=== PATIENT | female | born 1975 | race Caucasian/White ===

== ENCOUNTER 2021-09-16 12:11 | Emergency (ER) | payer OTHER, SELFPAY ==
[2021-09-16 12:40] VITALS: BP 151/104; PULSE 90; RESP 16; TEMP 36.9; O2SAT 100
--- NOTE | 2021-09-16 12:58 | ED.EAR ---
HPI - Ear Problem General Chief complaint: Ear Stated complaint: Bilateral Ear Pain Time Seen by Provider: 09/16/21 12:50 Source: patient Mode of arrival: ambulatory Limitations: no limitations History of Present Illness HPI Narrative: Kimmie Ramey is a 46 yo female with a PMH of HTN, asthma, who also smokes cigarettes, who comes with 4 days of bilateral ear pain; no drainage but pain that runs down the side of the jaw. No fever no nausea vomiting diarrhea Patient has blood pressure medication-but has not gotten it refilled she gets her medication adjustment and is aware that she needs to be on her medication Related Data Allergies Allergy/AdvReac Type Severity Reaction Status Date / Time No Known Allergies Allergy Verified 09/16/21 12:47 Review of Systems Review of Systems: CONSTITUTIONAL: Denies fever, chills, sweats. EYES: Denies visual changes, redness, discharge. ENT: Denies rhinorrhea, congestion, sore throat, bilateral otalgia. CARDIOVASCULAR: Denies chest pain, palpitations, edema. RESPIRATORY: Denies dyspnea, wheezing, cough GASTROINTESTINAL: Denies abdominal pain, nausea, vomiting, diarrhea. GENITOURINARY: Denies dysuria, hematuria, abnormal discharge SKIN: Denies rash or itching. NEUROLOGIC: Denies numbness, or focal weakness. PSYCHIATRIC: Denies anxiety or depression. [facility] Past Medical History Medical History Asthma HTN (hypertension) Social History Social History (Updated 09/16/21 @ 13:01 by Iva Mesa CNP) Smoking status: Current every day smoker Tobacco type: cigarettes Alcohol intake: current Comments At time of signature, I agree with nursing past medical, surgical, social and family history. There is no relevant family history pertinent to the presenting complaint. Exam Narrative: GENERAL: This is a well-nourished, well-developed patient, in moderate distress. HEAD: normocephalic, atraumatic. EYES: Sclera clear/white. Vision is grossly intact. EARS: External ears normal, auditory canals erythema and without drainage, TMs appear to have fluid behind them. Hearing grossly intact. NOSE: External nose normal without nasal discharge, nares without redness, no rhinorrhea. THROAT: Mucous membranes moist, posterior pharynx erythema NECK: Neck supple mild-tender CARDIOVASCULAR: Regular rate and rhythm without murmurs, gallops, or rubs. RESPIRATORY: Clear to auscultation. Breath sounds equal bilaterally. No wheezes, rales, or rhonchi. GASTROINTESTINAL: Not performed SKIN: warm, intact with no suspicious lesions or rash, good texture and turgor. NEURO: awake, alert, and oriented to person, place and time. There were no obvious focal neurologic abnormalities. Steady gait EXTREMITIES: Normal range of motion. BACK: Nontender without deformity Course Course Emergency Course: Bilateral ear pain x4 days, has tried Tylenol naproxen Started on polymyxin, Zyrtec, Flonase Level of Care: Express Care Visit Vital Signs Vital signs: Vital Signs Temperature 98.5 F 09/16/21 12:40 Pulse Rate 90 09/16/21 12:40 Respiratory Rate 16 09/16/21 12:40 Blood Pressure 151/104 H 09/16/21 12:40 Pulse Oximetry 100 09/16/21 12:40 Temperature 98.5 F 09/16/21 12:40 Pulse Rate 90 09/16/21 12:40 Respiratory Rate 16 09/16/21 12:40 Blood Pressure 151/104 H 09/16/21 12:40 Pulse Oximetry 100 09/16/21 12:40 Medical Decision Making Differential Diagnosis Differential Diagnosis: Otitis media versus otitis externa versus eustachian tube dysfunction Vital Signs Vital Signs: Vital Signs Temperature 98.5 F 09/16/21 12:40 Pulse Rate 90 09/16/21 12:40 Respiratory Rate 16 09/16/21 12:40 Blood Pressure 151/104 H 09/16/21 12:40 Pulse Oximetry 100 09/16/21 12:40 Temperature 98.5 F 09/16/21 12:40 Pulse Rate 90 09/16/21 12:40 Respiratory Rate 16 09/16/21 12:40 Blood Pressure 151/104 H 09/16/21 12:40
== END 2021-09-16 13:10 | disposition home or self-care (01) ==
PROVIDERS: Emergency Provider Nurse Practitioner
DX: H66.003 Acute suppurative otitis media without spontaneous rupture of ear drum, bilateral (principal); F17.210 Nicotine dependence, cigarettes, uncomplicated; J45.909 Unspecified asthma, uncomplicated; I10 Essential (primary) hypertension
CPT/HCPCS: 99203; G0463

== ENCOUNTER 2022-01-05 19:18 | Emergency (ER) | payer MEDICAID, SELFPAY ==
[2022-01-05 19:20] VITALS: BP 186/109; PULSE 95; RESP 18; TEMP 36.4; O2SAT 98
--- NOTE | 2022-01-05 20:34 | ED.GENADULT ---
HPI - General Adult General Chief complaint: Ear <JESSY Luis Last Filed: 01/06/22 02:59> Stated complaint: ear infection <JESSY Luis Last Filed: 01/06/22 02:59> Time Seen by Provider: 01/05/22 19:44 <JESSY Luis Last Filed: 01/06/22 02:59> History of Present Illness HPI narrative: Patient is a 47-year-old female with a history of hypertension and diabetes who presents emergency department for bilateral ear pain for the past year. Patient states the pain began after she used Debrox earwax removal drops. The pain is mostly present on the outside of her ear. She has been evaluated multiple times in numerous different urgent cares and has been prescribed multiple rounds of antibiotics without improvement of her pain, but she has not seen an ENT specialist. States that her pain is now severe, unrelieved after Tylenol and ibuprofen. Additionally reports some decreased hearing in her both of her ears, dizziness, and intermittent frontal headaches and sinus drainage. Patient also states that earwax is coming out of my head . She did not elaborate on that complaint. Denies fevers, chills. <JESSY Luis Last Filed: 01/06/22 02:59> Related Data Allergies/adverse reactions: Allergies Allergy/AdvReac Type Severity Reaction Status Date / Time No Known Allergies Allergy Unverified 01/05/22 19:24 <JESSY Luis Last Filed: 01/06/22 02:59> Review of Systems Review of Systems: Gen: Denies fevers or chills Eyes: denies eye pain or visual change ENT: Reports ear pain. Denies congestion Respiratory: Denies shortness of breath or cough CV: Denies chest pain or palpitations GI: Denies abdominal pain nausea, emesis or diarrhea : denies burning, urgency, frequency or hematuria Musculoskeletal: Denies back pain or muscle pain Neuro: Denies numbness, tingling, weakness or focal weakness Skin: Denies rash Except as documented, all other systems reviewed and negative <JESSY Luis Last Filed: 01/06/22 02:59> All systems reviewed & are unremarkable except as noted in HPI and below <Ashley Maya PA-C - Last Filed: 01/06/22 02:59> Exam Narrative: APPEARANCE: Well appearing, no pain in distress, well-nourished. Head: normocephalic and atraumatic. No mastoid swelling, redness or tenderness. She does note some pain with palpation at the angle of her mandible bilaterally. EYES: PERRLA/EOMI, conjunctivae clear NOSE: No nasal drainage EARS: TMs clear bilaterally. Bilateral external ear normal in appearance. No swelling or erythema. No discharge noted to bilateral ears. No mastoid tenderness. THROAT: Oropharynx is clear. Mucous membranes are moist. NECK: Supple. No adenopathy, no masses. RESPIRATORY: Airway patent, respirations nonlabored. Clear to auscultation bilaterally, no rales, rhonchi, wheezing. CARDIOVASCULAR: Regular rate and rhythm without murmurs, rubs, or gallops. ABDOMINAL: Normoactive bowel sounds. Soft, nontender, nondistended. No rebound tenderness or guarding. MUSCULOSKELETAL: Extremities are warm and well-perfused. Moves all extremities well. No edema. NEURO: Normal speech. No focal neurologic deficits. No gross hearing deficit. SKIN: Skin is warm and dry. No rashes. PSYCHIATRIC: Anxious affect. <Ashley Maya PA-C - Last Filed: 01/06/22 02:59> Course C[employer]ACER/PA Physician Supervision I did not see this patient but the care plan was discussed with me. I agree with the documentation as above <John Lewis MD - Last Filed: 01/06/22 03:28> Vital Signs Vital signs: Vital Signs Temperature 36.4 C 01/05/22 19:20 Pulse Rate 95 01/05/22 19:20 Respiratory Rate 18 01/05/22 19:20 Blood Pressure 186/109 H 01/05/22 19:20 Pulse Oximetry 98 01/05/22 19:20 Temperature 36.4 C 01/05/22 19:20 Pulse Rate 95 01/05/22 19:20 Respiratory Rate 18 01/05/22 1
[2022-01-05] MEDS: KETOROLAC 30 MG/ML VIAL (*BKC) IM (20:54)
== END 2022-01-05 21:57 | disposition home or self-care (01) ==
PROVIDERS: Emergency Provider Emergency Medicine
DX: H92.03 Otalgia, bilateral (principal); G89.29 Other chronic pain; I10 Essential (primary) hypertension; E11.9 Type 2 diabetes mellitus without complications
CPT/HCPCS: 96372; 99283; J1885

== ENCOUNTER 2022-03-09 14:55 | Emergency (ER) | payer MEDICAID, SELFPAY ==
--- NOTE | ~2022-03-09 | XR_ITS ---
XR chest 2V DATE: 03/09/2022 16:01 INDICATION: Chest pain and pressure. Shortness of breath. Hypertension. TECHNIQUE: PA and lateral views COMPARISON: None FINDINGS: Normal heart size. No hilar or mediastinal enlargement. No pulmonary infiltrate or consolid ation, pleural effusion or pulmonary vascular congestion or pneumothorax. IMPRESSION: No active cardiopulmonary disease Reviewed, dictated and finalized at location A.
--- NOTE | 2022-03-09 15:52 | ECG_ITS ---
Measurements Intervals [place] Rate: 82 P: 60 GA: 130 QRS: 71 QRSD: 90 T: 50 QT: 382 QTc: 447 Interpretive Statements SINUS RHYTHM LOW QRS VOLTAGE IN PRECORDIAL LEADS BASELINE ARTIFACT- I, II, III, AVR, AVL, AVF BORDERLINE ECG Electronically Signed On 03-09-2022 16:04:59 CDT by Chadd Gibson D.O.
[2022-03-09 16:10] VITALS: BP 148/97; PULSE 79; RESP 17; TEMP 36.6; O2SAT 99
--- NOTE | 2022-03-09 16:24 | ED.GENADULT ---
HPI - General Adult General Chief complaint: Chest Pain Stated complaint: abnormal labs Time Seen by Provider: 03/09/22 15:32 History of Present Illness HPI narrative: Patient is a 47-year-old female who presents ER with reports of abnormal lab work. She reports she was referred here by her PCP. She was seen at [facility] yesterday and was told she had elevated cardiac enzymes but they did not have a bed so she decided to leave just call her doctor today. Her doctor reports that they cannot help her with elevated cardiac enzymes and she should return to the ER. Patient reports she has central exertional chest discomfort that is aching and nonradiating. None at rest. She has been having shortness of breath with this chest discomfort and its been worsening over the last couple weeks. She notes that her blood sugars have been running higher than typical though she has been compliant with her metformin. Of note patient also reports burning urination with dark urine that is typical of UTI for her. She is not currently on antibiotics. Related Data Home Medications Medication Instructions Recorded Confirmed lisinopril 10 mg tablet tablet 03/09/22 metformin 500 mg tablet tablet 03/09/22 Allergies Allergy/AdvReac Type Severity Reaction Status Date / Time No Known Allergies Allergy Verified 03/09/22 16:13 Review of Systems Review of Systems: All systems reviewed & are unremarkable except as noted in HPI and below Constitutional: Constitutional: Denies chills, Denies fever(s) and Reports weakness ENT: Denies nasal congestion and Denies sore throat Cardiovascular: Cardiovascular: Reports chest pain, Denies rapid heart rate and Denies radiating jaw, neck or arm pain Comments: Exertional dyspnea Respiratory: Respiratory: Denies chest congestion, Denies cough and Reports dyspnea Gastrointestinal: Gastrointestinal: Denies abdominal pain, Denies nausea and Denies vomiting Genitourinary: Genitourinary: Denies abnormal vaginal bleeding, Reports nocturia, Reports dysuria and Reports urinary incontinence PMFSH Past Medical History Medical History (Updated 03/09/22 @ 20:16 by Silvio Bergeron MD) Diabetes Surgical History Surgical History (Updated 03/09/22 @ 16:27 by Silvio Bergeron MD) No pertinent past surgical history Social History Social History (Updated 03/09/22 @ 16:27 by Silvio Bergeron MD) Smoking status: Current every day smoker Exam Narrative: GENERAL: Well-appearing, well-nourished, and in no acute distress. HEAD: Normocephalic, atraumatic. EYES: PERRLA and EOMI. ENT: Mucous membranes moist. TMs normal bilaterally. CHEST: Clear to auscultation. No respiratory distress. HEART: Regular rate and rhythm. Normal peripheral pulses. ABDOMEN: Soft, nontender, nondistended. EXTREMITIES: Normal range of motion. No edema. SKIN: Warm, dry, no rash. NEURO: Alert and oriented x3. PSYCH: Normal mood and affect. Course Course Emergency Course: Patient resting comfortably. No chest pain. Informed of results. Patient does not wish to stay in the hospital. We will perform a second troponin because if it is rising she may stay. Reevaluation(s) Reevaluation #1: Troponin negative x2. Discharge. Date: 03/09/22 Time: 20:13 Vital Signs Vital signs: Vital Signs Temperature 97.8 F 03/09/22 16:10 Pulse Rate 79 03/09/22 16:10 Respiratory Rate 17 03/09/22 16:10 Blood Pressure 148/97 H 03/09/22 16:10 Pulse Oximetry 99 03/09/22 16:10 Oxygen Delivery Room Air 03/09/22 16:10 Temperature 97.8 F 03/09/22 16:10 Pulse Rate 79 03/09/22 16:10 Respiratory Rate 17 03/09/22 16:10 Blood Pressure 148/97 H 03/09/22 16:10 Pulse Oximetry 99 03/09/22 16:10 Oxygen Delivery Room Air 03/09/22 16:10 Medical Decision Making Vital Signs Vital Signs: Vital Signs Temperature 97.8 F 03/09/22 16:10 Pulse Rate 79 03/09/22 16:10 Respiratory Rate 17 03/09/22
[2022-03-09 16:36] LABS: Basophils Absolute Auto 0.1 K/mm3 (0.0-0.1); Basophils Percent Auto 0.9 % (0.2-1.2); Eosinophils Absolute Auto 0.2 K/mm3 (0-0.3); Eosinophils Percent Auto 2.1 % (0-4.4); Hemoglobin 13.8 g/dL (12.0-15.0); Immature Granulocyte Absolute 0.03 K/mm3 (0.00-0.031); Immature Granulocyte Percent A 0.3 % (0-0.5); Lymphocytes Absolute Auto 2.97 K/mm3 (0.9-3.2); Lymphocytes Percent Auto 34.1 % (18.3-44.2); Mean Corpuscular HGB Conc 32.9 g/dl (32-36); Mean Corpuscular Hemoglobin 30.1 pg (26-34); Mean Corpuscular Volume 91.7 fl (80-100); Mean Platelet Volume 11.6 fl (7.4-10.4); Monocytes Absolute Auto 0.6 K/mm3 (0.1-0.6); Neutrophils Absolute Auto 4.9 K/mm3 (1.3-6.7); Neutrophils Percent Auto 55.6 % (45.5-73.1); Platelet Count Result 256 k/mm3 (150-375); Red Blood Count 4.58 M/mm3 (4.2-5.4); Red Cell Distribution Width 12.9 % (11.5-14.5); White Blood Count 8.7 K/mm3 (4.5-10.0)
[2022-03-09 16:42] LABS: INR 0.9; Prothrombin Time 12.2 Seconds (11.1-14.7)
[2022-03-09 16:43] LABS: Alanine Aminotransferase 84 U/L (6-35); Albumin Level 3.9 g/dL (3.5-5.1); Alkaline Phosphatase 92 U/L (38-126); Anion Gap 5 mmol/L (8-16); Aspartate Amino Transferase 50 U/L (14-36); Bilirubin,Total < 0.1 mg/dL (0.2-1.3); Blood Urea Nitrogen 25 mg/dL (7-17); Calcium 8.7 mg/dL (8.4-10.2); Carbon Dioxide 24 mmol/L (22-30); Chloride 109 mmol/L (98-107); Estimated CRCL calculation 78 ml/min; Estimated Glomerular Filt Rate > 60; Glucose 139 mg/dL (65-110); Potassium 3.9 mmol/L (3.4-5.0); Sodium 138 mmol/L (137-145)
[2022-03-09 16:44] LABS: Partial Thromboplastin Time 27.2 SECONDS (22.3-36.8)
[2022-03-09 16:55] LABS: Troponin I < 0.012 ng/mL (0.000-0.034)
[2022-03-09 17:43] LABS: Appearance Urine Cloudy (Clear); Bilirubin Urine Negative (Negative); Blood Urine Negative (Negative); Color Urine Yellow (Yellow); Glucose Urine UA Trace mg/dL (Negative); Ketones Urine Negative (Negative); Leukocyte Esterase Ur Negative LEU/UL (Negative); Nitrate Urine Negative (Negative); Protein Urine Negative (Negative); Specific Grav Ur >= 1.030 (1.001-1.035); Urobilinogen Urine 0.2 mg/dL (<2.0)
[2022-03-09 17:49] LABS: Bacteria Urine Trace /hpf; Mucus Urine Few /lpf; RBC Urine 21-50 /hpf (0-2); Squamous Epithelial Cell Urine Many /hpf (Few); WBC Urine 0-3 /hpf
[2022-03-09 17:50] LABS: Add Urine Microscopic? YES
--- NOTE | 2022-03-09 18:43 | PC.NURSE ---
POC test was noted to be negative
[2022-03-09 19:27] LABS: Troponin I < 0.012 ng/mL (0.000-0.034)
[2022-03-09 20:30] VITALS: BP 179/123
== END 2022-03-09 20:35 | disposition home or self-care (01) ==
PROVIDERS: Emergency Provider Emergency Medicine
DX: R07.89 Other chest pain (principal); E11.9 Type 2 diabetes mellitus without complications; F17.200 Nicotine dependence, unspecified, uncomplicated; R94.31 Abnormal electrocardiogram [ECG] [EKG]; Z79.84 Long term (current) use of oral hypoglycemic drugs
CPT/HCPCS: 36415; 71046; 80053; 81001; 81025; 84484; 85025; 85610; 85730; 93005; 99284

== ENCOUNTER 2022-03-16 17:39 | Emergency (ER) | payer MEDICAID, SELFPAY ==
--- NOTE | 2022-03-16 18:02 | ED.EAR ---
HPI - Ear Problem General Chief complaint: Ear Stated complaint: bilateral ear pain Time Seen by Provider: 03/16/22 18:08 Source: patient and RN notes reviewed Mode of arrival: ambulatory Limitations: no limitations History of Present Illness HPI Narrative: 47-year-old female presents with concern for right ear pain. She reports history of problems with her ears over the last year. Reports she has had infections that she has needed oral antibiotics and drops for. She denies any recent nasal congestion, rhinorrhea, sore throat, fever. Reports muffled hearing in the right ear. Denies drainage from the right ear. She denies any recent swimming or trauma. MD Complaint: ear pain Related Data Home Medications Medication Instructions Recorded Confirmed gabapentin 03/16/22 lisinopril 10 mg tablet 1 tablet DAILY 03/16/22 03/16/22 metformin 500 mg tablet 1 tablet BID 03/16/22 03/16/22 tramadol 03/16/22 Allergies Allergy/AdvReac Type Severity Reaction Status Date / Time No Known Allergies Allergy Verified 03/16/22 18:09 Review of Systems Review of Systems: CONSTITUTIONAL: Denies malaise, chills, sweats, or fever. EYES: Denies visual changes, redness, or discharge. ENT: Denies rhinorrhea, congestion, sinus pain, and sore throat. Reports right ear pain CARDIOVASCULAR: Denies chest pain, palpitations, or edema. RESPIRATORY: Denies cough. Denies dyspnea. GASTROINTESTINAL: Denies abdominal pain, nausea, vomiting, diarrhea SKIN: Denies rash or itching. MUSCULOSKELETAL: Denies myalgia. NEUROLOGIC: Denies headache. All systems reviewed & are unremarkable except as noted in HPI and below PMFSH Past Medical History Medical History Asthma HTN (hypertension) Social History Social History (Updated 09/16/21 @ 13:01 by Iva Mesa CNP) Smoking status: Current every day smoker Tobacco type: cigarettes Alcohol intake: current Comments At time of signature, agree with nursing past medical, surgical, social and family history. There is no relevant family history pertinent to the presenting complaint Exam Narrative: GENERAL: Well-appearing, well-nourished, and in no acute distress. HEAD: Normocephalic EYES: PERRLA, conjunctivae clear ENT: Nares clear, turbinates edematous, clear discharge. Mucous membranes moist. TM pearly jacome with dull light reflex bilaterally; right tragal tenderness with EAC erythema, edema, drainage. Oropharynx not erythematous without lesions. Tonsils not enlarged and without exudate, no drooling, no hoarseness, no trismus, uvula midline. NECK: Supple. No lymphadenopathy CHEST: Clear to auscultation, breath sounds equal. No wheezing, rhonchi, rales, or stridor. No respiratory distress, speaks in full sentences. HEART: Regular rate and rhythm. No murmur heard. SKIN: Warm, dry, no rash. NEURO: Alert and oriented x3. PSYCH: Normal mood and affect Course Course Emergency Course: Patient is aware of diagnosis, understands and agrees to treatment plan. Anticipatory guidance given. Patient agrees to follow-up as directed and is aware of reasons to seek care at the emergency department. Portions of this record may have been created with voice recognition software Level of Care: Express Care Visit Vital Signs Vital signs: Reviewed. Medical Decision Making MDM Narrative Medical decision making narrative: Differential diagnosis considered: [place] virus, strep pharyngitis, allergic rhinitis, upper respiratory tract infection, sinusitis, rhinosinusitis, nasopharyngitis. viral pharyngitis, otitis media, otitis externa, otitis effusion, cerumen impaction, foreign body. Exam findings show no acute concerns or changes; patient is non-toxic appearing and is in no distress. Patient is appropriate for outpatient treatment and follow-up. Critical Care Time Critical Care Time Critical Care Time: No Discharge Plan Discharge Clinical Impression
[2022-03-16 18:11] VITALS: BP 161/123; PULSE 88; RESP 18; TEMP 36.3; O2SAT 99
[2022-03-16 18:28] VITALS: BP 153/111
== END 2022-03-16 18:28 | disposition home or self-care (01) ==
PROVIDERS: Emergency Provider Nurse Practitioner
DX: H60.91 Unspecified otitis externa, right ear (principal); J45.909 Unspecified asthma, uncomplicated; I10 Essential (primary) hypertension; F17.210 Nicotine dependence, cigarettes, uncomplicated
CPT/HCPCS: 99213; G0463